=== PATIENT | male | born 1975 ===

== ENCOUNTER → 2018-05-09 | Outpatient (CLI) | payer BC ==
[2018-05-09 17:08] LABS: Appearance,CSF Clear; CSF Tube Number 4; CSF Tube Volume 3
[2018-05-09 17:09] LABS: Nucleated Cells, CSF 1 u/L (0-5); Red Blood Cell,CSF 0 u/L (0-10)
[2018-05-09 17:24] LABS: Total Protein,CSF 53 mg/dL (12-60)
[2018-05-10 13:43] LABS: IgG - CSF 2.9 mg/dL (0.0 - 3.4); IgG/Albumin Index (CSF) 0.47 (0.00 - 0.77)
== END | disposition home or self-care (01) ==
LOC: LABWHC1 08:53
PROVIDERS: ATTEND Psychiatry & Neurology Neurology
DX: R90.82 White matter disease, unspecified (principal); R51 Headache
CPT/HCPCS: 36415; 82040; 82042; 82784; 83873; 83916; 84157; 87476; 88108; 89050